=== PATIENT | female | born 1990 | race Two or more races ===

== ENCOUNTER 2016-07-08 22:25 | Observation (INO) | payer OTHER ==
[~2016-07-08] VITALS: Ht 162.6 cm; Wt 78.7 kg
[2016-07-08] MEDS ORDERED: ONDANSETRON PF 4 MG/2 ML VIAL. IV ONE (22:45)
[2016-07-08] MEDS ORDERED: IV NORMAL SALINE 1000ML BAG 1,000 ML IV ONE (22:45)
[2016-07-08] MEDS ORDERED: fentaNYL PF VIAL 100 MCG/2 ML VIAL IV PRN (22:45)
--- NOTE | 2016-07-08 22:50 | ED.ADGEN ---
Adult General Chief Complaint Chief Complaint: SWALLOWED FORIEGN BODY HPI HPI Patient is a 25 year old woman, history of difficulties with swallowing, which she has previously been evaluated but has not received any intervention, who presents to the emergency department as a transfer from [facility] with report of of an esophageal impaction. Patient states that she swallowed a large pill around 5 PM, and felt immediately as though the pill was stuck in her throat. She states that she had hiccups, and multiple episodes of vomiting, and gagging, unable to dislodge the pill, is complaining of 10 out of 10 pain in her throat and chest. No difficulty breathing, patient was seen at [facility], and was gone and glycerin administered without effect, physician at [facility], Dr. Mix, spoke to the GI physician Dr. Marquez, patient is been transferred to the emergency department for GI evaluation and intervention for impaction. Patient denies any preceding symptoms, any fevers or chills, any weakness, numbness, tingling tingling, any injuries. This is the first time that she tried this type of pill. Review of Systems Review of Systems Constitutional: Denies fever or chills. [] Eyes: Denies change in visual acuity. [] HENT: Denies nasal congestion or sore throat. [] Respiratory: Cough, no shortness of breath. Hiccups. Cardiovascular: Denies chest pain or edema. [] GI: Denies abdominal pain, bloody stools or diarrhea. [] Burning sensation with sensation of retained foreign body in the throat, multiple sodas of nausea , vomiting, hiccuping. : Denies dysuria. [] Musculoskeletal: Denies back pain or joint pain. [] Integument: Denies rash. [] Neurologic: Denies headache, focal weakness or sensory changes. [] Endocrine: Denies polyuria or polydipsia. [] Lymphatic: Denies swollen glands. [] Psychiatric: Denies depression or anxiety. [] Current Medications Current Medications Current Medications Medications (Trade) Dose Ordered Sig/Abram Start Time Stop Time Status Last Admin Dose Admin Diphenhydramine HCl (Benadryl) 50 mg STK-MED ONCE 07/08/16 23:17 07/08/16 23:51 DC 07/08/16 23:17 25 MG Fentanyl Citrate (Fentanyl 2ml Vial) 100 mcg STK-MED ONCE 5/20/17 23:12 07/08/16 23:51 DC 07/08/16 23:12 50 MCG Lidocaine HCl (Lidocaine Pf 2% Vial) 5 ml STK-MED ONCE 07/08/16 23:35 07/08/16 23:36 DC Midazolam HCl (Versed) 5 mg STK-MED ONCE 07/08/16 23:21 07/08/16 23:51 DC 07/08/16 23:21 1 MG Ondansetron HCl (Zofran) 4 mg 1X ONCE 07/08/16 22:45 07/08/16 22:46 DC 07/08/16 22:53 4 MG Propofol 40 ml @ As Directed STK-MED ONCE 07/08/16 23:34 07/08/16 23:35 DC Sodium Chloride 1,000 ml @ 1,000 mls/hr 1X ONCE 07/08/16 22:45 07/08/16 23:51 DC 07/08/16 22:53 1,000 MLS/HR Allergies Allergies Allergies Coded Allergies Type Severity Reaction Last Updated Verified No Known Drug Allergies 07/08/16 No Physical Exam Physical Exam Constitutional: Well developed, well nourished, mild distress secondary to pain , vomiting in the ED, non-toxic appearance. [] HENT: Normocephalic, atraumatic, bilateral external ears normal, oropharynx moist, no oral exudates, nose normal. Visualize oropharynx is normal. [] Eyes: PERRLA, EOMI, conjunctiva normal, no discharge. [] Neck: Normal range of motion, no tenderness, supple, no stridor. [] Cardiovascular:Heart rate regular rhythm, no murmur, S1, S2, rubs or gallops. [] Lungs & Thorax: Bilateral breath sounds clear to auscultation, no wheezing, rhonchi, rales. No chest or crepitus or tenderness. [] Abdomen: Bowel sounds normal, soft, no rebound, rigidity, no guarding, no tenderness, no masses, no pulsatile masses. [] Skin: Warm, dry, no erythema, no rash. [] Back: No tenderness, no CVA tenderness. [] Extremities: No tenderness, no cyanosis, no clubbing, ROM intact, no edema. [] Neurologic: Alert and oriented X 3, normal motor function, normal sensory function, no focal deficits noted. [] Psychologic: Affect normal, judgement normal, mood normal. [] Current Patient Data Vital Signs Vital Signs Date Time Temp Pulse Resp B/P (MAP) Pulse Ox O2 Delivery O2 Flow Rate FiO2 07/09/16 00:00 84 101/52 (68) 97 07/08/16 23:45 Nasal Cannula 07/08/16 23:45 18 2 07/08/16 22:43 98.0 98.0 EKG EKG ECG: Rhythm strip: Heart rate 90 bpm, sinus rhythm, no ectopy. As interpreted by me. [] Radiology/Procedures Radiology/Procedures Not indicated. [] Course & Med Decision Making Course & Med Decision Making Pertinent Labs and Imaging studies reviewed. (See chart for details) I accepted transfer of patient from [facility] as stated, upon arousing emergency department patient complaining of pain in her throat with continued nausea, one episode of vomiting en route to the ED. Patient was evaluated at bedside by Dr. Marquez of GI, with anesthesia in attendance, and required significant sedation in order for scope the past, the pill was retrieved without issue. Patient places Lomotil oxygen with good effect, due to the degree of sedation, and the fact that she does not have any family or friends will be able to pick her up or her porch prior to the procedure, will admit as an observation admission for monitoring following this procedure. Patient is agreeable with this process, drowsy but easily arousable resting comfortably on 2 L nasal cannula. Findings as above discussed with Dr. Yanez of internal medicine, patient accepted to her service as an observation admission to the medical telemetry floor. Patient remained stable and comfortable as are her ED course on 1 L of supple oxygen at this point, patient transferred to the floor without issue. Dragon Disclaimer Dragon Disclaimer This electronic medical record was generated, in whole or in part, using a voice recognition dictation system. Departure Impression: Primary Impression: Impacted esophageal foreign body Disposition: ADMITTED INPATIENT Admitting Physician: Bebe Yanez Condition: IMPROVED EMMA ALFRED DO July 08, 2016 22:50
[2016-07-08] MEDS ORDERED: MIDAZOLAM HCL/PF 5 MG/5 ML VIAL. ONE ×2 (22:54→23:15)
[2016-07-08] MEDS ORDERED: MIDAZOLAM HCL/PF 5 MG/5 ML VIAL. IV ONE ×8 (23:05→23:21)
[2016-07-08] MEDS ORDERED: fentaNYL PF VIAL 100 MCG/2 ML VIAL IV ONE ×2 (23:05→23:12)
[2016-07-08] MEDS ORDERED: diphenhydrAMINE 50 MG/ML VIAL ONE (23:17)
[2016-07-08] MEDS ORDERED: diphenhydrAMINE 50 MG/ML VIAL IV ONE (23:17)
[2016-07-08] MEDS ORDERED: PROPOFOL 40 ML IV ONE (23:34)
[2016-07-08] MEDS ORDERED: LIDOCAINE 2% PF Vial for OR 5 ML VIAL. ONE (23:35)
[2016-07-09 01:00] VITALS: BP 100/59
[2016-07-09] MEDS ORDERED: ONDANSETRON PF 4 MG/2 ML VIAL. IV PRN (01:15)
[2016-07-09] MEDS: IV NORMAL SALINE 1000ML BAG 1,000 ML IV SCH ×2 (01:48→08:33)
[2016-07-09 03:59] VITALS: BP 92/48
[2016-07-09 07:00] VITALS: BP 97/66
--- NOTE | 2016-07-09 08:29 | CONS ---
DATE OF CONSULTATION: 07/09/2016 REQUESTING PHYSICIAN: Dr. Donahue. PRIMARY CARE PHYSICIAN: Unknown. REASON FOR PROCEDURE: Esophageal food bolus. HISTORY OF PRESENT ILLNESS: This is a 25-year-old female who presented to the [facility] after swallowing a supplement today. She swallowed at 5:00 p.m. She has been unable to hold her secretions and is vomiting. The gave her crackers as well as liquids at [facility] and she vomited that. On the ride over from [place] she reportedly threw up pill residue. She reports that she has previously had issues with swallowing, but has managed. PAST MEDICAL HISTORY: Dysphagia. MEDICATIONS: 1. Tylenol p.r.n. 2. Multivitamin supplement. FAMILY MEDICAL HISTORY: Negative for colorectal cancer. SOCIAL HISTORY: She denies tobacco, alcohol or IV drug abuse. REVIEW OF SYSTEMS: A 13-point review of systems was done. It is positive as per HPI and otherwise negative. PHYSICAL EXAMINATION: GENERAL: She is a well-developed, well-nourished -[place] female in no apparent distress. HEENT: Oropharynx is clear. CARDIOVASCULAR: S1, S2. LUNGS: Clear. ABDOMEN: Normoactive bowel sounds, soft, nontender, nondistended. EXTREMITIES: No edema. NEUROLOGIC: Awake, alert and oriented x 3. ASSESSMENT AND PLAN: Esophageal food bolus: Risks and benefits of the procedure including bleeding, perforation were explained and she has agreed to proceed. Thank you for allowing me to participate in the care of this patient. WHITNEY MATHEWS MD DR: SANJEEV/heriberto JOB#: [id number] / [id number]
--- NOTE | 2016-07-09 10:44 | PDOC1 ---
History and Physical Date of Admission Date of Admission DATE: 07/09/16 TIME: 10:40 Identification/Chief Complaint Chief Complaint pill stuck in throat Problems: Source Source: Patient History of Present Illness History of Present Illness young 25 y.o Female admitted bec of pill got stuck in her throat around 5 PM yesterday, Unrecalled pill, GI saw at ER, successfully extracted the foreign body but pt necessitated alot of sedation for the procedure hence was too drowsy to dc yesterday from ER level at the procedure. Now wide awake, a bit sore throat but tolerated diet fine, NO home meds Ready for dc ff up PCP PRN dw RN and pt Pt seen and examined Past Medical History Cardiovascular: No pertinent hx Pulmonary: No pertinent hx GI: No pertinent hx Heme/Onc: No pertinent hx Hepatobiliary: No pertinent hx Psych: No pertinent hx ENT: No pertinent hx Renal/: No pertinent hx Endocrine: No pertinent hx Dermatology: No pertinent hx Past Surgical History Past Surgical History: No pertinent history Social History Smoke: No ALCOHOL: none Drugs: None Current Problem List Problem List Problems Medical Problems: (1) Impacted esophageal foreign body Status: Acute Problems: Current Medications Current Medications Current Medications Fentanyl Citrate (Fentanyl 2ml Vial) 25 mcg PRN Q15MIN PRN IV PAIN GREATER THAN 3/10 Last administered on 07/08/16 22:54; Start 07/08/16 at 22:45; Stop at 22:44 Sodium Chloride 1,000 ml @ 1,000 mls/hr 1X ONCE IV Last administered on 22:53; Start 07/08/16 at 22:45; Stop 07/08/16 at 23:51; Status DC Ondansetron HCl (Zofran) 4 mg 1X ONCE IV Last administered on 07/08/16 22:53 ; Start 07/08/16 at 22:45; Stop 07/08/16 at 22:46; Status DC Midazolam HCl (Versed) 5 mg STK-MED ONCE .ROUTE ; Start 07/08/16 at 22:54; Stop 07/08/16 at 22:55; Status DC Midazolam HCl (Versed) 5 mg STK-MED ONCE .ROUTE ; Start 07/08/16 at 23:15; Stop 07/08/16 at 23:16; Status DC Diphenhydramine HCl (Benadryl) 50 mg STK-MED ONCE .ROUTE ; Start 07/08/16 at 23: 17; Stop 07/08/16 at 23:18; Status DC Propofol 40 ml @ As Directed STK-MED ONCE IV ; Start 07/08/16 at 23:34; Stop at 23:35; Status DC Lidocaine HCl (Lidocaine Pf 2% Vial) 5 ml STK-MED ONCE .ROUTE ; Start 07/08/16 at 23:35; Stop 07/08/16 at 23:36; Status DC Midazolam HCl (Versed) 5 mg STK-MED ONCE IV Last administered on 07/08/16 23: 05; Start 07/08/16 at 23:05; Stop 07/08/16 at 23:50; Status DC Fentanyl Citrate (Fentanyl 2ml Vial) 100 mcg STK-MED ONCE IV Last administered on 07/08/16 23:05; Start 07/08/16 at 23:05; Stop 07/08/16 at 23:50; Status DC Midazolam HCl (Versed) 5 mg STK-MED ONCE IV Last administered on 07/08/16 23: 07; Start 07/08/16 at 23:07; Stop 07/08/16 at 23:50; Status DC Midazolam HCl (Versed) 5 mg STK-MED ONCE IV Last administered on 07/08/16 23: 09; Start 07/08/16 at 23:09; Stop 07/08/16 at 23:50; Status DC Midazolam HCl (Versed) 5 mg STK-MED ONCE IV Last administered on 07/08/16 23: 11; Start 07/08/16 at 23:11; Stop 07/08/16 at 23:51; Status DC Fentanyl Citrate (Fentanyl 2ml Vial) 100 mcg STK-MED ONCE IV Last administered on 07/08/16 23:12; Start 07/08/16 at 23:12; Stop 07/08/16 at 23:51; Status DC Midazolam HCl (Versed) 5 mg STK-MED ONCE IV Last administered on 07/08/16 23: 14; Start 07/08/16 at 23:14; Stop 07/08/16 at 23:51; Status DC Midazolam HCl (Versed) 5 mg STK-MED ONCE IV Last administered on 07/08/16 23: 15; Start 07/08/16 at 23:15; Stop 07/08/16 at 23:51; Status DC Diphenhydramine HCl (Benadryl) 50 mg STK-MED ONCE IV Last administered on 23:17; Start 07/08/16 at 23:17; Stop 07/08/16 at 23:51; Status DC Midazolam HCl (Versed) 5 mg STK-MED ONCE IV Last administered on 07/08/16 23: 20; Start 07/08/16 at 23:20; Stop 07/08/16 at 23:51; Status DC Midazolam HCl (Versed) 5 mg STK-MED ONCE IV Last administered on 07/08/16 23: 21; Start 07/08/16 at 23:21; Stop 07/08/16 at 23:51; Status DC Ondansetron HCl (Zofran) 4 mg PRN Q8HRS PRN IV NAUSEA/VOMITING; Start 07/09/16 at 01:15; Stop 07/10/16 at 01:14 Sodium Chloride 1,000 ml @ 125 mls/hr Q8H IV Last administered on 07/09/16 01 :48; Start 07/09/16 at 01:15; Stop 07/10/16 at 01:14 Active Scripts Active No Active Prescriptions or Reported Medications Allergies Allergies: Coded Allergies: No Known Drug Allergies (Unverified , 07/08/16) ROS General: No: Chills, Night Sweats, Fatigue, Malaise, Appetite, Other PSYCHOLOGICAL ROS: No: Anxiety, Behavioral Disorder, Concentration difficultie , Decreased libido, Depression, Disorientation, Hallucinations, Hostility, Irritablity, Memory difficulties, Mood Swings, Obsessive thoughts, Physical abuse, Sexual abuse, Sleep disturbances, Suicidal ideation, Other Eyes: No Blurry vision, No Decreased vision, No Double vision, No Dry eyes, No Excessive tearing, No Eye Pain, No Itchy Eyes, No Loss of vision, No Photophobia , No Scotomata, No Uses contacts, No Uses glasses, No Other HEENT: YES: Other (sore throat) ALLERGY AND IMMUNOLOGY: No: Hives, Insect Bite Sensitivity, Itchy/Watery Eyes, Nasal Congestion, Post Nasal Drip, Seasonal Allergies, Other Hematological and Lymphatic: No: Bleeding Problems, Blood Clots, Blood Transfusions, Brusing, Night Sweats, Pallor, Swollen Lymph Nodes, Other ENDOCRINE: No: Breast Changes, Galactorrhea, Hair Pattern Changes, Hot Flashes , Malaise/lethargy, Mood Swings, Palpitations, Polydipsia/polyuria, Skin Changes , Temperature Intolerance, Unexpected Weight Changes, Other Respiratory: No: Cough, Hemoptysis, Orthopnea, Pleuritic Pain, Shortness of breath, SOB with excertion, Sputum Changes, Stridor, Tachypnea, Wheezing, Other Cardiovascular: No Chest Pain, No Palpitations, No Orthopnea, No Paroxysmal Noc. Dyspnea, No Edema, No Lt Headedness, No Other Gastrointestinal: No Nausea, No Vomiting, No Abdominal Pain, No Diarrhea, No Constipation, No Melena, No Hematochezia, No Other Genitourinary: No Dysuria, No Frequency, No Incontinence, No Hematuria, No Retention, No Discharge, No Urgency, No Pain, No Flank Pain, No Other, No , No , No , No , No , No , No Musculoskeletal: No Gait Disturbance, No Joint Pain, No Joint Stiffness, No Joint Swelling, No Muscle Pain, No Muscular Weakness, No Pain In:, No Swelling In:, No Other Neurological: No Behavorial Changes, No Bowel/Bladder ControlChng, No Confusion , No Dizziness, No Gait Disturbance, No Headaches, No Impaired Coord/balance, No Memory Loss, No Numbness/Tingling, No Seizures, No Speech Problems, No Tremors, No Visual Changes, No Weakness, No Other Skin: No Dry Skin, No Eczema, No Hair Changes, No Lumps, No Mole Changes, No Mottling, No Nail Changes, No Pruritus, No Rash, No Skin Lesion Changes, No Other, No Acne Physical Exam General: Alert, Oriented X3, Cooperative, No acute distress HEENT: Atraumatic, PERRLA, EOMI Lungs: Clear to auscultation, Normal air movement Heart: S1S2, RRR, no thrills, no rubs, no gallops Breasts: Normal, Rt breast nml w/o mass, Lt breast nml w/o mass, Nipples normal Abdomen: Normal bowel sounds, Soft, No tenderness, No hepatosplenomegaly, No masses Rectal Exam: not examined PELVIC: Nml ext genitalia Extremities: No clubbing, No cyanosis, No edema, Normal pulses, No tenderness/ swelling Skin: No rashes, No breakdown, No significant lesion Neuro: Normal gait, Normal speech, Strength at 5/5 X4 ext, Normal tone, Sensation intact, Cranial nerves 3-12 NL, Reflexes 2+ Psych/Mental Status: Mental status NL, Mood NL Vitals Vitals Vital Signs Date Time Temp Pulse Resp B/P (MAP) Pulse Ox O2 Delivery O2 Flow Rate FiO2 07/09/16 07:00 98.6 92 16 97/66 (76) 99 Room Air 98.6 07/09/16 00:30 1.0 VTE Prophylaxis Ordered VTE Prophylaxis Devices: Yes VTE Pharmacological Prophylaxi: Yes Assessment/Plan Assessment/Plan 1. Impacted FB in esophagus successfully extracted 2. Post procedure sedation/drowsiness PLAN: Home today JANNETTE CLAIRE MD July 09, 2016 10:44
--- NOTE | 2016-07-09 10:45 | PDOC3 ---
Discharge Summary Visit Information Date of Admission: July 08, 2016 Date of Discharge: July 09, 2016 Admitting Diagnosis Comment: 1. Impacted FB in esophagus successfully extracted 2. Post procedure sedation/drowsiness Final Diagnosis Problems Medical Problems: (1) Impacted esophageal foreign body Status: Acute Brief Hospital Course Allergies Allergies Coded Allergies Type Severity Reaction Last Updated Verified No Known Drug Allergies 07/08/16 No Vital Signs Vital Signs Date Time Temp Pulse Resp B/P (MAP) Pulse Ox O2 Delivery O2 Flow Rate FiO2 07/09/16 07:00 98.6 92 16 97/66 (76) 99 Room Air 98.6 07/09/16 00:30 1.0 Brief Hospital Course young 25 y.o Female admitted bec of pill got stuck in her throat around 5 PM yesterday, Unrecalled pill, GI saw at ER, successfully extracted the foreign body but pt necessitated alot of sedation for the procedure hence was too drowsy to dc yesterday from ER level at the procedure. Now wide awake, a bit sore throat but tolerated diet fine, NO home meds Ready for dc ff up PCP PRN dw RN and pt Pt seen and examined Discharge Information Condition at Discharge: Improved, Stable Disposition/Orders: D/C to Home No Active Prescriptions or Reported Meds JANNETTE CLAIRE MD July 09, 2016 10:45
--- NOTE | 2016-07-09 10:51 | ACF ---
Admission Forms Criteria ESOPHAGEAL DISEASE Clinical Indications for Admission to Inpatient Care (Place 'X' for any and all applicable criteria): Admission is indicated for ANY ONE of the following(1)(2)(3): [ ]I. Suspected esophageal perforation or fistula(6)(7) [ ]II. Complete esophageal obstruction [ ]III. Esophagitis with secondary mediastinitis [ ]IV. Severe acute radiation esophagitis [ ]V. Inpatient admission required rather than observation care because of ANY ONE of the following: [ ]a) Vomiting that is severe or persistent [ ]b) Volume depletion that is severe or persistent [ ]c) Severe electrolyte abnormalities requiring inpatient care [ ]d) Severe pain requiring acute inpatient management [ ]e) Caustic ingestion related injury that requires inpatient care(8) [ ]f) High fever or infection requiring in pt. admission for ANY ONE of the following (9): [ ]1) Appropriate out pt. or observation care antimicrobial treatment not effective [ ]2) Documented bacteremia [ ]3) Temperature greater than 40.5 C (104.9 F ) (oral) [ ]4) Temperature over 103.1 F (39.5 degreesC)( oral) or under 96.8 F(36 degrees C, rectal) not responding to all emergency department treatment [ ]g) IV fluid to replace significant ongoing losses ( greater than 3 L/m2 per day) [ ]h) Percutaneous or open drainage (eg, abscess, biliary tract) procedures [ ]i) Parenteral nutrition regimen that must be implemented on inpatient basis [ ]j) Immediate inpatient surgery [ ]k) Other condition, treatment or monitoring requiring inpatient admission Extended stay beyond goal length of stay may be needed for(1)(2)(3)(28): [ ]a) Continued severe esophageal dysfunction or obstruction [ ]b) Hemorrhagic esophagitis [ ]c) Severe caustic injury [ ]d) Tracheoesophageal fistula [ ]e) Esophageal perforation [ ]f) Mediastinitis The original [employer] content created by [employer] has been revised. The portions of the content which have been revised are identified through the use of italic text or in bold, and [employer] has neither reviewed nor approved the modified material. All other unmodified content is copyright [employer]. Please see references footnoted in the original [employer] edition 2016 FELI HIGUERA July 09, 2016 10:51
--- NOTE | 2016-07-09 23:15 | OP ---
DATE OF SURGERY: 07/09/2016 REASON FOR PROCEDURE: Esophageal food bolus. MEDICATIONS: Monitored anesthesia care. PROCEDURE: The Pentax upper endoscope was introduced into the mouth and passed to the upper level of the lower esophagus. An esophageal food bolus was noted in the distal esophagus. This was the form of a pill. This was removed endoscopically. A large amount of food and fluid was found in the fundus. This was suctioned through the scope. The scope was then passed into the fundus, body, and the antrum of the stomach. There was presence of hematin. Retroflexion was performed. There was no hiatal hernia present. Scope was then passed into the first and second portion of the duodenum. There was no mucosal abnormality. The scope was then withdrawn. The esophagus was examined again. There was significant inflammation in the distal esophagus. The scope was completely withdrawn. The patient suffered no complications. FINDINGS: 1. Esophageal food bolus in the distal esophagus that was removed endoscopically. 2. Hematin in the stomach. 3. Esophagitis. PLAN: 1. Clear liquid diet. 2. Repeat upper endoscopy in 2 weeks. Thank you for allowing me to participate in the care of this patient. WHITNEY MATHEWS MD DR: SANJEEV/heriberto JOB#: [id number] / [id number] Whitney Oropeza M.D.
== END 2016-07-09 10:45 | disposition home or self-care (01) ==
LOC: ER 22:25 → 5 SOUTH 07-09 00:03
PROVIDERS: ADMIT Internal Medicine; ATTEND Internal Medicine
DX: T18.128A Food in esophagus causing other injury, initial encounter (principal); K56.60 Unspecified intestinal obstruction; K20.9 Esophagitis, unspecified; X58.XXXA Exposure to other specified factors, initial encounter; Y93.89 Activity, other specified; Y92.89 Other specified places as the place of occurrence of the external cause; Y99.8 Other external cause status
CPT/HCPCS: 43247; 96374; 99285; C1757; G0378; J1200; J2250; J2405; J2704; J3010; J7030; 96375; 99152; G0379